=== PATIENT | male | born 1950 | race Caucasian/White ===

== ENCOUNTER 2017-01-11 22:30 | Emergency (ER) | payer MEDICARE, BC ==
[2017-01-11] MEDS ORDERED: ASPIRIN 81 MG TABLET, CHEWABLE PO ONE (22:37)
--- NOTE | 2017-01-11 23:09 | RADIOLOGY REPORT (SQ) ---
EXAM DESCRIPTION: CHEST SINGLE VIEW COMPLETED DATE/TIME: 01/11/2017 11:01 pm REASON FOR STUDY: chest pain COMPARISON: 11/15/2015. EXAM PARAMETERS: NUMBER OF VIEWS: One view. TECHNIQUE: Single frontal radiographic view of the chest acquired. RADIATION DOSE: NA LIMITATIONS: None. FINDINGS: LUNGS AND PLEURA: No opacities, masses or pneumothorax. No pleural effusion. MEDIASTINUM AND HILAR STRUCTURES: No masses. Contour normal. HEART AND VASCULAR STRUCTURES: Heart normal in size. Normal vasculature. BONES: No acute findings. HARDWARE: Sternotomy wires and coronary bypass markers. OTHER: No other significant finding. IMPRESSION: NO ACUTE RADIOGRAPHIC FINDING IN THE CHEST. TECHNICAL DOCUMENTATION: JOB ID: [id number]
[2017-01-11 23:14] LABS: ABSOLUTE EOSINOPHILS # (AUTO) 0.1 10^3/uL (0.0-0.6); ABSOLUTE LYMPHOCYTES (AUTO) 1.1 10^3/uL (0.5-4.7); ABSOLUTE MONOCYTES (AUTO) 0.6 10^3/uL (0.1-1.4); ABSOLUTE NEUT (AUTO) 4.5 10^3/uL (1.7-8.2); BASOPHILS % (AUTO) 0.4 % (0-2); EOSINOPHILS % (AUTO) 2.3 % (0-6); HEMATOCRIT 38.3 % (37.9-51.0); HEMOGLOBIN 12.7 g/dL (13.5-17.0); HGB HCT DIFFERENCE -0.2; LYMPHOCYTES % (AUTO) 16.6 % (13-45); MEAN CORPUSCULAR HEMOGLOBIN 30.6 pg (27.0-33.4); MEAN CORPUSCULAR HGB CONC 33.1 g/dL (32.0-36.0); MEAN CORPUSCULAR VOLUME 92 fl (80-97); MONOCYTES % (AUTO) 9.7 % (3-13); RED BLOOD COUNT 4.15 10^6/uL (4.35-5.55); RED CELL DISTRIBUTION WIDTH 13.4 % (11.5-14.0); WHITE BLOOD COUNT 6.4 10^3/uL (4.0-10.5)
[2017-01-11 23:28] LABS: ALANINE AMINOTRANSFERASE 39 U/L (21-72); ALBUMIN 4.3 g/dL (3.5-5.0); ALKALINE PHOSPHATASE 54 U/L (38-126); ANION GAP 14 (5-19); ASPARTATE AMINO TRANSFERASE 31 U/L (17-59); BILIRUBIN,DIRECT 0.2 mg/dL (0.0-0.4); BILIRUBIN,TOTAL 0.4 mg/dL (0.2-1.3); BLOOD UREA NITROGEN 19 mg/dL (7-20); CALCIUM 9.4 mg/dL (8.4-10.2); CARBON DIOXIDE 20 mmol/L (22-30); CHLORIDE 104 mmol/L (98-107); CREATINE KINASE 107 U/L (55-170); CREATININE RESULT 0.85 mg/dL (0.52-1.25); GLUCOSE 179 mg/dL (75-110); POTASSIUM 4.3 mmol/L (3.6-5.0); SODIUM 138.1 mmol/L (137-145); TOTAL PROTEIN 6.6 g/dL (6.3-8.2)
--- NOTE | 2017-01-11 23:30 | ER Document Report ---
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 He states that he came to be evaluated for this. Past medical history of GA with stenting 1, GA with triple bypass in 2013, type 2 diabetes, hypertension, hyperlipidemia. He follows with local vest busheler Dr. Edmondson, he had a stress test within the past month. TRAVEL OUTSIDE OF THE [place] IN LAST 30 DAYS: No - Related Data Allergies/Adverse Reactions: No Known Allergies Allergy (Verified 11/15/15 04:33) Past Medical History - General Information source: Patient - Social History Smoking Status: Former Smoker Frequency of alcohol use: None Drug Abuse: None Lives with: Family Family History: CAD, Hypertension, Other - GA Patient has suicidal ideation: No Patient has homicidal ideation: No - Past Medical History Cardiac Medical History: Reports: Hx Coronary Artery Disease, Hx Heart Attack - x2, Hx Hypercholesterolemia, Hx Hypertension Endocrine Medical History: Reports: Hx Diabetes Mellitus Type 2 Renal/ Medical History: Reports: Hx Kidney Stones. Denies: Hx Peritoneal Dialysis Past Surgical History: Reports: Hx Cardiac Catheterization - stent x1; triple bypass, Hx Coronary Artery Bypass Graft, Hx Coronary Stent - Immunizations Hx Diphtheria, Pertussis, Tetanus Vaccination: No Hx Pneumococcal Vaccination: 04/15/14 Review of Systems - Review of Systems Constitutional: No symptoms reported EENT: No symptoms reported Cardiovascular: See HPI Respiratory: No symptoms reported Gastrointestinal: No symptoms reported Genitourinary: No symptoms reported Male Genitourinary: No symptoms reported Musculoskeletal: No symptoms reported Skin: No symptoms reported Hematologic/Lymphatic: No symptoms reported Neurological/Psychological: No symptoms reported Physical Exam - Vital signs Vitals: Pulse Ox 97 01/11/17 22:37 Interpretation: Normal - General General appearance: Appears well In distress: None - HEENT Head: Normocephalic, Atraumatic Eyes: Normal Extraocular movements intact: Yes Eyelashes: Normal Pupils: PERRL Nasal: Other Mucous membranes: Normal Pharynx: Normal Neck: Normal - Respiratory Respiratory status: No respiratory distress Chest status: Tender - There is reproducible tenderness over both the right and left chest wall over the pectoralis muscles, no erythema, induration, or other abnormalities noted Breath sounds: Normal. No: Decreased air movement, Wheezing Chest palpation: Normal - Cardiovascular Rhythm: Regular. No: Tachycardia Heart sounds: Normal auscultation, S1 appreciated, S2 appreciated Murmur: No - Abdominal Inspection: Normal Distension: No distension Bowel sounds: Normal Tenderness: Nontender. No: Tender, Guarding Organomegaly: No organomegaly - Back Back: Normal, Nontender. No: Tender - Extremities General upper extremity: Normal inspection, Nontender, Normal color, Normal ROM , Normal temperature General lower extremity: Normal inspection, Nontender, Normal color, Normal ROM , Normal temperature, Normal weight bearing. No: Louis's sign - Neurological Neuro grossly intact: Yes Cognition: Normal Orientation: AAOx4 [place] Coma Scale Eye Opening: Spontaneous [place] Coma Scale Verbal: Oriented [place] Coma Scale Motor: Obeys Commands Vil[place] Coma Scale Total: 15 Speech: Normal Motor strength normal: LUE, RUE, LLE, RLE Sensory: Normal - Psychological Associated symptoms: Normal affect, Normal mood - Skin Skin Temperature: Warm Skin Moisture: Dry Skin Color: Normal Course - Re-evaluation Re-evalutation: EKG shows sinus rhythm, no T-wave inversions or ST segment changes in consecutive leads, no significant change compared to prior. Initial cardiac enzyme unremarkable, labs generally unremarkable other than slightly low bicarbonate. Does have mild chest wall tenderness on examination. Worse with movement. X-ray unremarkable. Cardiac enzymes cycled and is unremarkable. Patient began complaining of a headache, this resolved with Tylenol and Zofran. Discussed with patient's vest busheler, Dr. Edmondson, discussed results, history, symptoms. Stress test 6 weeks ago which was recommending intense medical therapy with low cardiac threshold for cath, however patient does have specific tenderness on palpation, negative workup tonight, and symptoms have been going on for over a week. He recommends that patient call his office this morning or on Sunday, patient states he has his cell phone already and that he prefers this. Discussed return precautions, patient states understanding and agreement. - Vital Signs Vital signs: Temp Pulse Resp BP Pulse Ox 97.9 F 12 148/81 H 94 01/12/17 05:26 01/12/17 05:01 01/12/17 05:01 01/12/17 05:01 - Laboratory Result Diagrams: 01/11/17 22:58 01/11/17 22:58 Laboratory results interpreted by me: 01/11/17 01/11/17 22:58 22:58 RBC 4.15 L Hgb 12.7 L Carbon Dioxide 20 L Glucose 179 H Discharge - Discharge Clinical Impression: Chest wall pain Chest pain Qualifiers: Chest pain type: unspecified Qualified Code(s): R07.9 - Chest pain, unspecified Condition: Stable Disposition: HOME, SELF-CARE Additional Instructions: Your workup today did not show any abnormalities. Because of your history and symptoms, please call Dr. Edmondson (cell phone) either today or Sunday for a close follow-up. Return to emergency department for any concerning or worsening symptoms.
[2017-01-11 23:38] LABS: CREATINE KINASE MB 1.89 ng/mL (<4.55)
[2017-01-11 23:39] LABS: TROPONIN I < 0.012 ng/mL
[2017-01-12] MEDS ORDERED: NORMAL SALINE 1000 ML 500 ML IV ONE (00:16)
[2017-01-12] MEDS ORDERED: MORPHINE SULFATE 10 MG/ML INJ IV ONE (02:50)
[2017-01-12] MEDS ORDERED: ACETAMINOPHEN 325 MG TABLET PO ONE (04:09)
[2017-01-12] MEDS ORDERED: ONDANSETRON HCL INJ/PF 4 MG/2 ML SDV IV ONE (04:09)
[2017-01-12 05:15] VITALS: BP 148/81
--- NOTE | 2017-01-12 08:36 | EKG REPORT ---
SEVERITY:- ABNORMAL ECG - SINUS TACHYCARDIA VENTRICULAR PREMATURE COMPLEX LEFT ANTERIOR FASCICULAR BLOCK : Confirmed by: Susana Rojas 12-Jan-2017 08:35:40
== END 2017-01-12 05:26 | disposition home or self-care (01) ==
LOC: ER 22:30
DX: R07.89 Other chest pain (principal); R11.0 Nausea; R42 Dizziness and giddiness; R51 Headache; E11.9 Type 2 diabetes mellitus without complications; I25.10 Atherosclerotic heart disease of native coronary artery without angina pectoris; I25.2 Old myocardial infarction; I10 Essential (primary) hypertension; Z87.891 Personal history of nicotine dependence; Z82.49 Family history of ischemic heart disease and other diseases of the circulatory system; Z98.61 Coronary angioplasty status; Z95.1 Presence of aortocoronary bypass graft
CPT/HCPCS: 93005; 99285; 96361; 96374; 36415; 82553; 82550; 85025; 80053; 84484; 71010; 93010; J2270; J7030

== ENCOUNTER 2017-07-08 10:19 | Emergency (ER) | payer MEDICARE, BC ==
[2017-07-08] MEDS ORDERED: ASPIRIN 81 MG TABLET, CHEWABLE PO ONE (10:20)
[2017-07-08 10:43] LABS: ABSOLUTE EOSINOPHILS # (AUTO) 0.3 10^3/uL (0.0-0.6); ABSOLUTE LYMPHOCYTES (AUTO) 1.4 10^3/uL (0.5-4.7); ABSOLUTE MONOCYTES (AUTO) 0.7 10^3/uL (0.1-1.4); ABSOLUTE NEUT (AUTO) 4.5 10^3/uL (1.7-8.2); BASOPHILS % (AUTO) 0.4 % (0-2); EOSINOPHILS % (AUTO) 3.8 % (0-6); HEMATOCRIT 40.4 % (37.9-51.0); HEMOGLOBIN 13.7 g/dL (13.5-17.0); HGB HCT DIFFERENCE 0.7; LYMPHOCYTES % (AUTO) 20.1 % (13-45); MEAN CORPUSCULAR HEMOGLOBIN 30.8 pg (27.0-33.4); MEAN CORPUSCULAR HGB CONC 33.9 g/dL (32.0-36.0); MEAN CORPUSCULAR VOLUME 91 fl (80-97); MONOCYTES % (AUTO) 9.6 % (3-13); RED BLOOD COUNT 4.45 10^6/uL (4.35-5.55); RED CELL DISTRIBUTION WIDTH 12.6 % (11.5-14.0); SEGMENTED NEUTROPHILS % (AUTO) 66.1 % (42-78); WHITE BLOOD COUNT 6.8 10^3/uL (4.0-10.5)
[2017-07-08 10:58] LABS: ALANINE AMINOTRANSFERASE 42 U/L (21-72); ALBUMIN 4.5 g/dL (3.5-5.0); ALKALINE PHOSPHATASE 54 U/L (38-126); ANION GAP 14 (5-19); ASPARTATE AMINO TRANSFERASE 36 U/L (17-59); BILIRUBIN,DIRECT 0.2 mg/dL (0.0-0.4); BILIRUBIN,TOTAL 0.4 mg/dL (0.2-1.3); BLOOD UREA NITROGEN 23 mg/dL (7-20); CALCIUM 11.1 mg/dL (8.4-10.2); CARBON DIOXIDE 25 mmol/L (22-30); CHLORIDE 102 mmol/L (98-107); CREATINE KINASE 50 U/L (55-170); CREATININE RESULT 1.07 mg/dL (0.52-1.25); GLUCOSE 120 mg/dL (75-110); POTASSIUM 4.8 mmol/L (3.6-5.0); SODIUM 140.9 mmol/L (137-145); TOTAL PROTEIN 6.8 g/dL (6.3-8.2)
[2017-07-08 11:10] LABS: CREATINE KINASE MB 1.06 ng/mL (<4.55)
[2017-07-08 11:11] LABS: TROPONIN I < 0.012 ng/mL
--- NOTE | 2017-07-08 11:41 | RADIOLOGY REPORT (SQ) ---
EXAM DESCRIPTION: CHEST SINGLE VIEW COMPLETED DATE/TIME: 07/08/2017 11:33 am REASON FOR STUDY: cp COMPARISON: 01/11/2017 NUMBER OF VIEWS: One view. TECHNIQUE: Single frontal radiographic view of the chest acquired. LIMITATIONS: None. FINDINGS: LUNGS AND PLEURA: No opacities, masses or pneumothorax. No pleural effusion. MEDIASTINUM AND HILAR STRUCTURES: No masses. Contour normal. HEART AND VASCULAR STRUCTURES: Heart normal in size. Normal vasculature. Prior CABG. BONES: No acute findings. HARDWARE: CABG hardware. OTHER: No other significant finding. IMPRESSION: NO SIGNIFICANT RADIOGRAPHIC FINDING IN THE CHEST. PRIOR CABG. TECHNICAL DOCUMENTATION: JOB ID: [id number] [facility] [employer] [facility]- All Rights Reserved
--- NOTE | 2017-07-08 12:24 | ER Document Report ---
ED Cardiac - General Chief Complaint: Chest Pain Stated Complaint: CHEST PAIN Time Seen by Provider: 07/08/17 12:19 Mode of Arrival: Ambulatory Information source: Patient Notes: 66 yo male who lives alone, hx 2 VT (angioplasty age 41, CABG 2013, 1 stent age 47) DM2, hypertension, hereditary cardiac problems, hyperlipidemia, c/o intermittent Delgado chest pain (left greater than right) squeezing for a week, constant since 0130, couldn't sleep, pressure lik too. Persisted today, 3 NTG did not help. Superficial Aching/Tightness left chest persists at this time "over the pectoral muscles), similar sx but less amount on the right. Recent dx and tx prostatis (antibiotics), Dr Zaldivar told him to come in to be seen. No recent injury or physical labor to cause muscle pain. TRAVEL OUTSIDE OF THE [place] IN LAST 30 DAYS: No - Related Data Allergies/Adverse Reactions: No Known Allergies Allergy (Verified 07/08/17 10:35) Past Medical History - General Information source: Patient - Social History Smoking Status: Former Smoker Chew tobacco use (# tins/day): No Frequency of alcohol use: None Drug Abuse: None Family History: CAD, Hypertension, Other - [place] Patient has suicidal ideation: No Patient has homicidal ideation: No - Past Medical History Cardiac Medical History: Reports: Hx Coronary Artery Disease, Hx Heart Attack - x2, Hx Hypercholesterolemia, Hx Hypertension Endocrine Medical History: Reports: Hx Diabetes Mellitus Type 2 Renal/ Medical History: Reports: Hx Kidney Stones. Denies: Hx Peritoneal Dialysis Past Surgical History: Reports: Hx Cardiac Catheterization - stent x1; triple bypass, Hx Coronary Artery Bypass Graft, Hx Coronary Stent - Immunizations Hx Diphtheria, Pertussis, Tetanus Vaccination: No Hx Pneumococcal Vaccination: 04/15/14 Review of Systems - Review of Systems Constitutional: No symptoms reported EENT: No symptoms reported Cardiovascular: See HPI Respiratory: No symptoms reported Gastrointestinal: No symptoms reported Genitourinary: No symptoms reported Male Genitourinary: No symptoms reported Musculoskeletal: No symptoms reported Skin: No symptoms reported Hematologic/Lymphatic: No symptoms reported Neurological/Psychological: No symptoms reported Physical Exam - Vital signs Vitals: Pulse Ox 98 07/08/17 10:30 Interpretation: Normal - General General appearance: Appears well, Alert - HEENT Head: Normocephalic, Atraumatic Eyes: Normal Conjunctiva: Normal Pupils: PERRL Mucous membranes: Normal Pharynx: Normal Neck: Supple. No: Lymphadenopathy - Respiratory Respiratory status: No respiratory distress Chest status: Nontender. No: Tender Breath sounds: Normal Chest palpation: Normal - Cardiovascular Rhythm: Regular Heart sounds: Normal auscultation Murmur: No - Abdominal Inspection: Normal Distension: No distension Bowel sounds: Normal Tenderness: Nontender. No: Tender Organomegaly: No organomegaly - Back Back: Normal, Nontender. No: CVA tenderness - Extremities General upper extremity: Normal inspection, Nontender, Normal color, Normal ROM , Normal temperature General lower extremity: Normal inspection, Nontender, Normal color, Normal ROM , Normal temperature, Normal weight bearing. No: Louis's sign - Neurological Neuro grossly intact: Yes Cognition: Normal Orientation: AAOx4 [place] Coma Scale Eye Opening: Spontaneous [place] Coma Scale Verbal: Oriented [place] Coma Scale Motor: Obeys Commands Vil[place] Coma Scale Total: 15 Speech: Normal Motor strength normal: LUE, RUE, LLE, RLE Sensory: Normal - Psychological Associated symptoms: Normal affect, Normal mood - Skin Skin Temperature: Warm Skin Moisture: Dry Skin Color: Normal Skin irregularity: negative: Rash Course - Re-evaluation Re-evalutation: 07/08/17 12:[address] carrasco, he said to consult dr. zaldivar. 07/08/17 12:[address] Zaldivar who recommended giving a Percocet and to get the second troponin and call him back. 07/08/17 16:12 Second troponin is negative and Dr. Decker called and wants the patient discharged home to take Tylenol, dr zaldivar states this is not cardiac pain. He saw the pt in ER 1. Pain went to 2.5 after the percocet per dr zaldivar orders. 07/08/17 16:14 - Vital Signs Vital signs: Temp Pulse Resp BP Pulse Ox 98.2 F 73 20 124/71 96 07/08/17 16:42 07/08/17 16:42 07/08/17 16:42 07/08/17 16:42 07/08/17 16:42 - Laboratory Result Diagrams: 07/08/17 10:29 07/08/17 10:29 Laboratory results interpreted by me: 07/08/17 10:29 BUN 23 H Glucose 120 H Calcium 11.1 H Creatine Kinase 50 L Discharge - Discharge Clinical Impression: Chest pain Qualifiers: Chest pain type: unspecified Qualified Code(s): R07.9 - Chest pain, unspecified Condition: Good Disposition: HOME, SELF-CARE Instructions: Acetaminophen, Chest Pain of Unclear Cause ([facility]) Additional Instructions: see dr zaldivar for follow up return to ER any worsening in symptoms or any new symptoms Referrals: LISSETTE DECKER MD [ACTIVE STAFF] - Follow up as needed ()
[2017-07-08] MEDS ORDERED: OXYCODONE-ACETAMINOPHEN 5-325 MG TABLET PO ONE (12:49)
[2017-07-08] MEDS ORDERED: MAG HYDROX/AL HYDROX/SIMETH SUSP 30 ML UDCUP PO ONE (14:45)
[2017-07-08 16:45] VITALS: BP 124/71
--- NOTE | 2017-07-08 20:38 | CONSULTATION REPORT E ---
Consultation Report NAME: DONNA FELICIANO : 1950 AGE: 66Y DATE: 07/08/2017 TO: LISSETTE DECKER M.D. FROM: Mayco FERNANDO Requesting Physician REQUESTING PHYSICIAN: Patient seen in the Emergency Room at the request of Nurse Practitioner, Ms. Diaz Jemma. REASON FOR CONSULTATION: Chest tightness. HISTORY: The patient is a 66-year-old male with known history of coronary artery disease, history of coronary artery bypass graft surgery, past history of AL, history of stents prior to bypass graft surgery, hypertension, and diabetes mellitus type 2 non-insulin dependent state. Since the last 1 week, he has been having some chest tightness in the left front of the chest and also on the right side. It comes and goes. It stays for about half an hour or so. It is not associated with diaphoresis, palpitations or shortness of breath. He states that it is not brought on or increased by exertion. He states that he took 3 nitroglycerin 5 minutes apart with no relief. He also states that he felt nauseous and felt like he had to throw up before he came into the Emergency Room. He called me with this and since the patient has had significant coronary artery disease, I asked him to come to the Emergency Room. At present, the patient is having mild chest tightness. There is no chest wall tenderness. Moving his torso or clenching his pectoral muscles does not reproduce or increase the pain. He denies any shortness of breath, PND, orthopnea, leg edema, dizziness, near syncope or syncope. There are no TIA or CVA symptoms. There is no pedal edema. PAST MEDICAL HISTORY: Positive for history of hypertension and hyperlipidemia. He also has history of depression which is well controlled on medication. He has a history of enlarged prostate, symptoms controlled with medication. He also has a history of diabetes mellitus type 2, non-insulin dependent. He states that when he was age 47, he had an AL and subsequently had a stent in unknown coronary artery vessel. Subsequently, he developed an ST elevation AL in 2012 and cardiac catheterization showed a left main equivalent disease with a proximal LAD significant lesion and also a circumflex lesion. He underwent coronary artery bypass graft surgery with a PECK to the LAD and a sequential radial graft to the obtuse marginal 1 and obtuse marginal 2 branch of the circumflex. He has had a recent stress test which was negative for ischemia or AL. His echo also showed normal LV function. There is no history of congestive heart failure. He has had atypical chest pain, which sounds noncardiac, since a few months. He has a history of hypertension which is well controlled and he has a history of diabetes mellitus type 2 non-insulin dependent. He also has a history of hyperlipidemia. There is no history of TIA or CVA. There is no history of asthma, COPD or sleep apnea. He has no history of GERD or peptic ulcer disease. He has symptoms of enlarged prostate controlled with medication. He has no history of sleep apnea. NO history of headaches, migraines or seizures. No history of TIA, CVA. He has a history of depression, well controlled with medication. There is no history of chronic kidney disease. ALLERGIES: He has no known allergies. FAMILY HISTORY: His father did have coronary artery disease and an AL. MEDICATIONS: 1. Aspirin 81 mg chewable 1 p.o. daily. 2. Atorvastatin 80 mg p.o. daily. 3. Flexeril 10 mg p.o. t.i.d. p.r.n. 4. Linzess 1 tablet p.o. daily. 5. Metformin 1000 mg tablet p.o. b.i.d. 6. Flomax 0.4 mg p.o. daily. 7. Metoprolol tartrate 25 mg p.o. b.i.d. 8. Effexor XR 37.5 mg p.o. daily. REVIEW OF SYSTEMS: CONSTITUTIONAL: Denies any fevers, chills or rigors. There are no symptoms of weakness or fatigue. HEAD: No history of headaches or head injury. No dizziness. EYES: No history of amblyopia or diplopia. No history of amaurosis fugax. EARS: No history of hearing loss. No history of tinnitus. No history of recurrent ear infection. NOSE: No history of hay fever. No history of nosebleeds. No history of nasal polyps. MOUTH: No altered taste sensation. No ulcers in the tongue. No bleeding from the gums. THROAT: No odynophagia or dysphagia. No history of recurrent sore throats. SKIN: No history of pruritus. No history of yellowish discoloration of the skin. history of psoriasis or skin cancer. NECK: Denies any neck pain. No history of goiter. LUNGS: No history of asthma or COPD. No history of wheezing. No history of recent symptoms suggestive rule out URI or LRI. No cough or sputum production. No wheezing. No history of sleep apnea. No history of pulmonary embolism. No history of hemoptysis. No history of pleuritic chest pain. CARDIAC: History of noncardiac chest pain, as mentioned earlier. History of hypertension present. History of coronary artery disease. Old myocardial infarction. History of coronary artery bypass graft surgery. No history of congestive heart failure. No history of cardiac arrhythmia. No history of PND, orthopnea or leg edema. No history of palpitations, syncope or near syncope. No dizziness. RENAL: No history of chronic kidney disease. No history of symptoms of UTI. No history of hematuria, pyuria or dysuria. GASTROINTESTINAL: No history of GI bleed. No history of peptic ulcer disease. The patient has history of constipation and takes Linzess for this. No history of fatty food intolerance. No history of jaundice. No history of altered bowel movements. Did have some nausea with symptoms mentioned earlier. He did feel like throwing up but did not. RENAL: No history of chronic kidney disease. No symptoms of UTI. No history of hematuria, pyuria or dysuria. Symptoms of enlarged prostate, controlled with medication. MUSCULOSKELETAL: History of arthritis and chronic back pain. He takes Flexeril off and on. No history of collagen-vascular disease. ENDOCRINE: History of diabetes mellitus type 2, non-insulin dependent. No history of thyroid disease. No history of polydipsia or polyuria. No history of heat or cold intolerance. CENTRAL NERVOUS SYSTEM: No history of TIA or CVA. No history of seizures, headaches or migraines. No history of gait imbalance. PSYCHIATRIC: History of depression, well controlled with medication. No suicidal ideation. No history of homicidal ideation. VASCULAR: No history of calf or buttock claudication. No history of DVT. HEMATOLOGICAL: No history of bleeding diathesis. No history of clotting disorders. SOCIAL HISTORY: The patient does not smoke. There is no history of ETOH abuse. ADVANCED DIRECTIVE: The patient is FULL CODE. He states that his friend who is a nurse is his surrogate healthcare decision maker. PHYSICAL EXAMINATION: GENERAL: The patient is well built and well nourished, at present in no acute distress. VITAL SIGNS: He is afebrile with a temperature of 98 degrees Fahrenheit. His pulse is 58 beats per minute. Blood pressure is 129/74. Respirations are 14 per minute. O2 sats are 96% on room air. HEENT: Head is atraumatic, normocephalic. Eyes: Pupils are equal, round, regular, reactive to light and accommodation. Extraocular movements are normal. There is no conjunctival pallor. There is no scleral icterus. Ears: Tympanic membranes are intact. External auditory canals are clear. Nose: There is no deviated nasal septum. There is no inflammation of the nasal mucous membranes. Mouth: Mucous membranes of the mouth are moist. Tongue is moist. There are no ulcers. There is no bleeding from the gums. Throat: There is no redness of the oropharynx. There are no exudates in the throat. SKIN: There are no skin rashes. There is no petechia or ecchymosis. There are no skin lesions. NECK: Supple. There is no JVD. There is no lymphadenopathy. There is no goiter. Carotids are equal. There is no bruit. Trachea central. LUNGS: Clear to auscultation and percussion. There is no chest wall tenderness. HEART: S1 and S2 is heard. There is no S3 gallop. There is no S4 gallop. There is a systolic murmur in the left sternal border on the apex without radiation. There is no rub. ABDOMEN: Soft, nontender. There is no hepatosplenomegaly. Bowel sounds are well heard. There are no tender areas or masses. EXTREMITIES: Femorals are well felt. Leg pulses are well felt. There is no pedal edema. There is no DVT or cellulitis. There are no femoral bruits. There is no cyanosis or clubbing. There is no calf tenderness. Capillary refill is normal. CENTRAL NERVOUS SYSTEM: The patient is conscious, awake, alert, oriented x3 with no focal deficits. PSYCHIATRIC: The patient's judgment and insight are intact. His affect is normal. DIAGNOSTICS: The patient's EKG done shows sinus rhythm, left axis deviation. No acute changes. The patient's chest x-ray is negative with no acute radiographic findings. The patient's white count is 6800; hemoglobin 13.7; hematocrit 40.4; and platelet count is 179,000. His CPK MB is negative x1. His CPK is about 50. His troponin I is negative x2, taken about 6 hours apart. His total protein is 6.8, albumin is 4.5. The patient's sodium is 140.9, potassium 4.8, chloride 102, CO2 is 25. The patient's BUN is 23, creatinine is 1.07. GFR is greater than 60 and glucose is 120, calcium 7.1. His liver function tests were normal. IMPRESSION: 1. Chest pain, most likely noncardiac. Note: Here the patient had relief with Darvocet and Maalox. 2. Coronary artery disease, history of old AL, history of stent in an unknown vessel, and history of coronary artery bypass graft surgery x3 vessels. No definite anginal symptoms. No EKG changes. Negative troponin I x2. 3. Hypertension, well controlled. 4. Diabetes mellitus type 2, non-insulin dependent. Blood sugars fairly stable. Continue metformin. 5. Hyperlipidemia. Continue statin. 6. Symptoms of enlarged prostate, controlled with medication. Continue the same. 7. History of depression, well controlled with medication. ADDENDUM: PAST SURGICAL HISTORY: Positive for: 1. Cardiac catheterization. 2. Stent placement. 3. Coronary artery bypass graft. 4. History of stones removed from his right kidney endoscopically. RECOMMENDATIONS: 1. The patient is reassured that this pain is noncardiac. 2. We will continue his current medications including aspirin, beta carmen, sublingual nitroglycerin p.r.n. 3. Continue his metformin and statin. 4. Continue his medication for enlarged prostate. 5. Continue Linzess for his constipation. The patient was seen in the Emergency Room at 11:00. Time spent on the patient was 45 minutes including review of the patient's old chart and present chart and discussing the EKG, chest x-ray, and lab findings with the patient. Patient reassured that this is noncardiac. The patient has my cell phone number. He will call me if he has any further problems. More than 50% of the time or 45 minutes spent on direct patient care and also case discussed with the ER nurse practitioner and also the patient. His medications have been reviewed and I have asked him to continue his current medication including sublingual nitroglycerin p.r.n., chewable aspirin, metoprolol, and his other current medication. The patient has my cell phone number. We will arrange for the patient to see me in the office. Medical decision making is moderate to high complexity. We will follow with you. DICTATING PHYSICIAN: LISSETTE DECKER M.D. [id number] PHY#: [id number] ID: [id number] JOB#: [id number] ACCT: [id number] cc:LISSETTE DECKER M.D. >
--- NOTE | 2017-07-08 20:47 | EKG REPORT ---
SEVERITY:- BORDERLINE ECG - SINUS RHYTHM BORDERLINE IVCD WITH LAD : Confirmed by: Everton Allan MD 08-Jul-2017 20:46:47
== END 2017-07-08 16:45 | disposition home or self-care (01) ==
LOC: ER 10:19
DX: R07.9 Chest pain, unspecified (principal); E11.9 Type 2 diabetes mellitus without complications; I10 Essential (primary) hypertension; E78.5 Hyperlipidemia, unspecified; I25.10 Atherosclerotic heart disease of native coronary artery without angina pectoris; I25.2 Old myocardial infarction; Z95.1 Presence of aortocoronary bypass graft; Z87.891 Personal history of nicotine dependence; Z87.442 Personal history of urinary calculi
CPT/HCPCS: 93005; 99285; 36415; 82553; 82550; 85025; 80053; 84484; 71010; 93010; A9270 ×2

== ENCOUNTER 2017-07-31 14:50 | Emergency (ER) | payer MEDICARE, BC ==
--- NOTE | 2017-07-31 16:28 | ER Document Report ---
ED Medical Screen (RME) - General Chief Complaint: Groin Pain Stated Complaint: GROIN PAIN,ABDOMINAL CRAMPING Time Seen by Provider: 07/31/17 16:26 Mode of Arrival: Ambulatory Information source: Patient Notes: 66 yo male with bilateral groin pain and abdominal pain since , constant everyday. Marbella leone (urologist) ordered the CT scan done at [facility]. Has follow up appt sunday with dr. leone. Wants to be evaluated here at [facility]. Having sporadic stools, no vomiting, having some weight loss. No appetite. NO fever. Occasional nausea. TRAVEL OUTSIDE OF THE [place] IN LAST 30 DAYS: No - Related Data Allergies/Adverse Reactions: No Known Allergies Allergy (Verified 07/31/17 14:53) Past Medical History - Past Medical History Cardiac Medical History: Reports: Hx Coronary Artery Disease, Hx Heart Attack - x2, Hx Hypercholesterolemia, Hx Hypertension Endocrine Medical History: Reports: Hx Diabetes Mellitus Type 2 Renal/ Medical History: Reports: Hx Kidney Stones. Denies: Hx Peritoneal Dialysis Past Surgical History: Reports: Hx Cardiac Catheterization - stent x1; triple bypass, Hx Coronary Artery Bypass Graft, Hx Coronary Stent - Immunizations Hx Diphtheria, Pertussis, Tetanus Vaccination: No Physical Exam - Vital signs Vitals: Temp Pulse Resp BP Pulse Ox 97.6 F 73 18 112/63 94 07/31/17 15:00 07/31/17 15:00 07/31/17 15:00 07/31/17 15:00 07/31/17 15:00 Course - Vital Signs Vital signs: Temp Pulse Resp BP Pulse Ox 97.6 F 73 18 112/63 94 07/31/17 15:00 07/31/17 15:00 07/31/17 15:00 07/31/17 15:00 07/31/17 15:00
--- NOTE | 2017-07-31 17:12 | RADIOLOGY REPORT (SQ) ---
EXAM DESCRIPTION: ACUTE ABDOMEN SERIES COMPLETED DATE/TIME: 07/31/2017 4:49 pm REASON FOR STUDY: crampy abdominal pain COMPARISON: CT abdomen pelvis 06/23/2007, 10/08/2011 Chest films 07/08/2017 NUMBER OF VIEWS: Three views. TECHNIQUE: Frontal chest, supine abdomen and upright abdomen radiographic images acquired. LIMITATIONS: None. FINDINGS: CHEST: Lungs clear of infiltrates. Cardiac silhouette size normal. No hilar enlargement. Old sternotomy for CABG. Bones osteopenic without acute findings. FREE AIR: None. No abnormal gas collections. BOWEL GAS PATTERN: Nonobstructive pattern. No dilated loops or air fluid levels. Large amount of sto ol throughout the colon. CALCIFICATIONS: Pelvis phlebolith versus distal left ureteral calculus at the ureterovesical junction . HARDWARE: None in the abdomen. SOFT TISSUES: No gross mass or suggestion of organomegaly. BONES: No acute fracture. No worrisome bone lesions. OTHER: No other significant finding. IMPRESSION: 6 mm calcification in the left pelvis, could represent a distal left ureteral stone rath er than a pelvic phleboliths. Moderate constipation. No acute cardiopulmonary changes TECHNICAL DOCUMENTATION: JOB ID: [id number] [employer]- All Rights Reserved
[2017-07-31 17:36] LABS: ABSOLUTE EOSINOPHILS # (AUTO) 0.1 10^3/uL (0.0-0.6); ABSOLUTE LYMPHOCYTES (AUTO) 1.1 10^3/uL (0.5-4.7); ABSOLUTE MONOCYTES (AUTO) 0.5 10^3/uL (0.1-1.4); ABSOLUTE NEUT (AUTO) 6.9 10^3/uL (1.7-8.2); BASOPHILS % (AUTO) 0.5 % (0-2); EOSINOPHILS % (AUTO) 0.8 % (0-6); HEMATOCRIT 44.9 % (37.9-51.0); MEAN CORPUSCULAR HEMOGLOBIN 31.1 pg (27.0-33.4); MEAN CORPUSCULAR HGB CONC 33.5 g/dL (32.0-36.0); MEAN CORPUSCULAR VOLUME 93 fl (80-97); MONOCYTES % (AUTO) 5.9 % (3-13); PLATELET COUNT 239 10^3/uL (150-450); RED BLOOD COUNT 4.83 10^6/uL (4.35-5.55); RED CELL DISTRIBUTION WIDTH 13.2 % (11.5-14.0); SEGMENTED NEUTROPHILS % (AUTO) 79.8 % (42-78); TOTAL CELLS COUNTED % (AUTO) 100 %; WHITE BLOOD COUNT 8.7 10^3/uL (4.0-10.5)
[2017-07-31 17:46] LABS: APPEARANCE,URINE SLIGHTLY-CLOUDY; BILIRUBIN,URINE NEGATIVE (NEGATIVE); CALCIUM OXALATE CRYSTALS,URINE MANY /HPF; COLOR,URINE YELLOW; GLUCOSE, URINE 50 mg/dL (NEGATIVE); KETONES,URINE NEGATIVE (NEGATIVE); LEUKOCYTE ESTERASE,URINE NEGATIVE (NEGATIVE); NITRITE,URINE NEGATIVE (NEGATIVE); PROTEIN,URINE NEGATIVE (NEGATIVE); URINE SPECIFIC GRAVITY 1.025
[2017-07-31 17:55] LABS: ALANINE AMINOTRANSFERASE 52 U/L (21-72); ALBUMIN 5.3 g/dL (3.5-5.0); ALKALINE PHOSPHATASE 52 U/L (38-126); ANION GAP 15 (5-19); ASPARTATE AMINO TRANSFERASE 35 U/L (17-59); BILIRUBIN,DIRECT 0.2 mg/dL (0.0-0.4); BILIRUBIN,TOTAL 0.4 mg/dL (0.2-1.3); BLOOD UREA NITROGEN 18 mg/dL (7-20); CALCIUM 10.9 mg/dL (8.4-10.2); CARBON DIOXIDE 27 mmol/L (22-30); CHLORIDE 101 mmol/L (98-107); GLUCOSE 102 mg/dL (75-110); LIPASE 493.4 U/L (23-300); MAGNESIUM 1.9 mg/dL (1.6-2.3); POTASSIUM 5.1 mmol/L (3.6-5.0); SODIUM 142.9 mmol/L (137-145); TOTAL PROTEIN 7.6 g/dL (6.3-8.2)
[2017-07-31] MEDS ORDERED: OXYCODONE-ACETAMINOPHEN 5-325 MG TABLET PO ONE (21:29)
--- NOTE | 2017-07-31 21:36 | ER Document Report ---
ED General - General Chief Complaint: Groin Pain Stated Complaint: GROIN PAIN,ABDOMINAL CRAMPING Time Seen by Provider: 07/31/17 16:26 Mode of Arrival: Ambulatory TRAVEL OUTSIDE OF THE [place] IN LAST 30 DAYS: No - HPI Patient complains to provider of: Abdominal pain Onset: Other - 2 months Onset/Duration: Constant Quality of pain: Achy Severity: Moderate Associated symptoms: None Exacerbated by: Denies Relieved by: Denies Similar symptoms previously: No Recently seen / treated by doctor: Yes - Dr. Church - Related Data Allergies/Adverse Reactions: No Known Allergies Allergy (Verified 07/31/17 14:53) Past Medical History - General Information source: Patient - Social History Smoking Status: Never Smoker Chew tobacco use (# tins/day): No Frequency of alcohol use: None Drug Abuse: None Lives with: Alone Family History: CAD, Hypertension, Other - [place] Patient has suicidal ideation: No Patient has homicidal ideation: No - Past Medical History Cardiac Medical History: Reports: Hx Coronary Artery Disease, Hx Heart Attack - x2, Hx Hypercholesterolemia, Hx Hypertension Pulmonary Medical History: Reports: None Neurological Medical History: Reports: None Endocrine Medical History: Reports: Hx Diabetes Mellitus Type 2 Renal/ Medical History: Reports: Hx Kidney Stones. Denies: Hx Peritoneal Dialysis Malignancy Medical History: Reports None GI Medical History: Reports: None, Other - Colonoscopy Musculoskeltal Medical History: Reports None Skin Medical History: Reports None Psychiatric Medical History: Reports: None Traumatic Medical History: Reports: None Past Surgical History: Reports: Hx Cardiac Catheterization - stent x1; triple bypass, Hx Coronary Artery Bypass Graft, Hx Coronary Stent - Immunizations Hx Diphtheria, Pertussis, Tetanus Vaccination: No Hx Pneumococcal Vaccination: 04/15/14 Review of Systems - Review of Systems Constitutional: No symptoms reported EENT: No symptoms reported Cardiovascular: No symptoms reported Respiratory: No symptoms reported Gastrointestinal: Abdominal pain Genitourinary: No symptoms reported Male Genitourinary: No symptoms reported Musculoskeletal: No symptoms reported Skin: No symptoms reported Hematologic/Lymphatic: No symptoms reported Neurological/Psychological: No symptoms reported Physical Exam - Vital signs Vitals: Temp Pulse Resp BP Pulse Ox 97.6 F 73 18 112/63 94 07/31/17 15:00 07/31/17 15:00 07/31/17 15:00 07/31/17 15:00 07/31/17 15:00 Interpretation: Normal - Notes Notes: PHYSICAL EXAMINATION: GENERAL: Well-appearing, well-nourished and in no acute distress. HEAD: Atraumatic, normocephalic. EYES: Pupils equal round and reactive to light, extraocular movements intact, sclera anicteric, conjunctiva are normal. ENT: Nares patent, oropharynx clear without exudates. Moist mucous membranes. NECK: Normal range of motion, supple without lymphadenopathy LUNGS: Breath sounds clear to auscultation bilaterally and equal. No wheezes rales or rhonchi. HEART: Regular rate and rhythm ABDOMEN: Soft, centralized mild tenderness, nondistended abdomen. No guarding, no rebound. No masses appreciated. Musculoskeletal: Normal range of motion, no pitting or edema. No cyanosis. NEUROLOGICAL: Cranial nerves grossly intact. Normal speech, normal gait. Normal sensory, motor exams PSYCH: Normal mood, normal affect. SKIN: Warm, Dry, normal turgor, no rashes or lesions noted. : No inguinal hernias appreciated Course - Re-evaluation Re-evalutation: 07/31/17 21:38 I did talk to the patient after reviewing his CAT scan as well as her findings. It does seem that his lipase is mildly increased which fits with a presentation of mild pancreatitis. Patient states that he does not drink. His LFTs and bilirubin are within normal limits. I told the patient I will discharge him home with pain medication. He is to call his primary medical doctor in the morning to be seen this week for further evaluation. She is to return to the emergency department if he has high fevers increased pain vomiting or any other concerns. 07/31/17 21:47 Patient's psychology physician was also in the room when I went over the findings as well as the discharge plan. Patient was agreeable to call his primary medical doctor in the morning for further evaluation - Vital Signs Vital signs: Temp Pulse Resp BP Pulse Ox 97.6 F 73 18 112/63 94 07/31/17 15:00 07/31/17 15:00 07/31/17 15:00 07/31/17 15:00 07/31/17 15:00 - Laboratory Result Diagrams: 07/31/17 17:10 07/31/17 17:10 Laboratory results interpreted by me: 07/31/17 07/31/17 07/31/17 17:10 17:10 17:10 Seg Neutrophils % 79.8 H Potassium 5.1 H Calcium 10.9 H Albumin 5.3 H Lipase 493.4 H Urine Glucose (UA) 50 H Urine Urobilinogen 2.0 H Urine Ascorbic Acid 40 H - Diagnostic Test Radiology reviewed: Image reviewed, Reports reviewed Radiology results interpreted by me: 07/31/17 21:36 Obstruction series negative for any acute findings with the exception of a 6 mm calcification in the pelvis. Patient had an outpatient CT of abdomen and pelvis without contrast on 07/25/2017. Demonstrate gallstones, splenic calcification on the lateral margin with no change since 12/15/11, vascular calcifications, prostatic calcifications, degenerative changes of the lower lumbar spine. 07/31/17 21:37 Discharge - Discharge Clinical Impression: Pancreatitis Condition: Stable Disposition: HOME, SELF-CARE Instructions: Pancreatitis (OM) Additional Instructions: Return to the emergency department if you have vomiting, fevers, increased pain or any other concerns. Prescriptions: Hydrocodone/Acetaminophen [Larned 5-325 mg Tablet] 1 tab PO Q6 3 Days #12 tablet Referrals: Chelo CHU MD [Primary Care Provider] - Follow up tomorrow (Call for appointment in the next few days. Return to the emergency department if you have fevers, intractable vomiting or any other concerns.)
[2017-07-31 22:00] VITALS: BP 119/78
== END 2017-07-31 21:55 | disposition home or self-care (01) ==
LOC: ER 14:50
DX: K85.90 Acute pancreatitis without necrosis or infection, unspecified (principal); R10.30 Lower abdominal pain, unspecified
CPT/HCPCS: 99284; 36415; 87086; 83690; 83735; 85025; 80053; 81001; 74022; A9270

== ENCOUNTER 2017-08-31 05:36 | Day surgery (SDC) | payer MEDICARE, BC ==
[2017-08-30 10:01] LABS: HEMATOCRIT 38.3 % (37.9-51.0); HEMOGLOBIN 13.1 g/dL (13.5-17.0); MEAN CORPUSCULAR HEMOGLOBIN 31.2 pg (27.0-33.4); MEAN CORPUSCULAR HGB CONC 34.3 g/dL (32.0-36.0); MEAN CORPUSCULAR VOLUME 91 fl (80-97); PLATELET COUNT 192 10^3/uL (150-450); RED BLOOD COUNT 4.21 10^6/uL (4.35-5.55); RED CELL DISTRIBUTION WIDTH 13.2 % (11.5-14.0); WHITE BLOOD COUNT 7.1 10^3/uL (4.0-10.5)
[2017-08-30 10:29] LABS: ALANINE AMINOTRANSFERASE 43 U/L (21-72); ALBUMIN 4.5 g/dL (3.5-5.0); ALKALINE PHOSPHATASE 53 U/L (38-126); AMYLASE 71 U/L (30-110); ANION GAP 12 (5-19); ASPARTATE AMINO TRANSFERASE 31 U/L (17-59); BILIRUBIN,DIRECT 0.1 mg/dL (0.0-0.4); BILIRUBIN,TOTAL 0.2 mg/dL (0.2-1.3); BLOOD UREA NITROGEN 14 mg/dL (7-20); CALCIUM 9.8 mg/dL (8.4-10.2); CARBON DIOXIDE 26 mmol/L (22-30); CHLORIDE 106 mmol/L (98-107); GLUCOSE 144 mg/dL (75-110); POTASSIUM 4.5 mmol/L (3.6-5.0); SODIUM 144.2 mmol/L (137-145); TOTAL PROTEIN 6.3 g/dL (6.3-8.2)
[~2017-08-31 05:36] MED LIST: ACETAMINOPHEN 325 MG TABLET PO PRN; CEFAZOLIN 1 GM/D5W RTU 1 GM/50 ML RTUPB IV PRN; LACTATED RINGERS 1000 ML IV PRN; LIDOCAINE 0.5% INJ-PF (5 MG/ML) 50 ML SDV SUBCUT PRN
[2017-08-31] MEDS ORDERED: METOPROLOL SUCCINATE 25 MG TAB.SR.24H PO ONE (06:28)
[2017-08-31] MEDS ORDERED: BUPIVACAINE HCL 0.25 % INJ/PF (2.5 MG/1 ML) 30 ML VIAL ONE (06:36)
[2017-08-31] MEDS ORDERED: MIDAZOLAM 2 MG/2 ML INJ ONE (07:22)
[2017-08-31] MEDS ORDERED: ACETAMINOPHEN 100 ML IV ONE (07:23)
[2017-08-31] MEDS ORDERED: PROPOFOL INJ 200 MG/20 ML VIAL IV ONE (07:23)
[2017-08-31] MEDS ORDERED: FENTANYL CITRATE INJ/PF 250 MCG/5 ML AMPULE ONE (07:23)
[2017-08-31] MEDS ORDERED: FENTANYL CITRATE INJ/PF 100 MCG/2 ML AMPUL IV PRN ×3 (07:47)
[2017-08-31] MEDS ORDERED: MEPERIDINE HCL/PF INJ 25 MG/1 ML DISP.SYRIN IV PRN (07:47)
[2017-08-31] MEDS ORDERED: PROMETHAZINE HCL INJ 25 MG/1 ML VIAL IV PRN ×2 (07:47)
[2017-08-31] MEDS ORDERED: DIPHENHYDRAMINE HCL 50 MG/ML VIAL IV PRN (07:47)
[2017-08-31] MEDS ORDERED: OXYCODONE-ACETAMINOPHEN 5-325 MG TABLET PO PRN ×2 (07:47)
[2017-08-31] MEDS ORDERED: MORPHINE SULFATE 10 MG/ML INJ IV PRN (07:47)
--- NOTE | 2017-08-31 08:45 | PDOC DISCHARGE SUMMARY ---
Discharge Summary (SDC) - Discharge Final Diagnosis: Symptomatic cholelithiasis with cholecystitis Date of Surgery: 08/31/17 Discharge Date: 08/31/17 Condition: Good Treatment or Instructions: Resume preoperative medications, diet and be on a limited activity status; prescription for Toradol on chart; return to clinic in 1-2 weeks to follow-up with ANDREW Mancilla; May shower in 24 hours. Referrals: NORA WILCOX MD [Primary Care Provider] - Discharge Diet: As Tolerated Discharge Activity: Activity As Tolerated, No Lifting Over 10 Pounds Home Care Assistance: None Needed Report the Following to Your Physician Immediately: Shortness of Breath, Increase in Pain, Fever over 101 Degrees
--- NOTE | 2017-08-31 08:50 | Operative Report ---
Operative Report DATE OF SURGERY: 08/31/17 PREOPERATIVE DIAGNOSIS: Symptomatic cholecystitis with cholelithiasis POSTOPERATIVE DIAGNOSIS: Same OPERATION: 1. Laparoscopic cholecystectomy. 2. Intraoperative cholangiography. 3. Interpretation of intraoperative cholangiography SURGEON: WENDY PA ANESTHESIA: GA TISSUE REMOVED OR ALTERED: 1 gallbladder with contents COMPLICATIONS: None ESTIMATED BLOOD LOSS: Scant INTRAOPERATIVE FINDINGS: See below PROCEDURE: After obtaining informed consent, the patient was taken to the operating room. General Anesthesia was induced; the arms were extended, and the abdomen was exposed, and prepped and draped in a sterile fashion. Instrumentation was set up for laparoscopic cholecystectomy. Surgical plan and surgical timeout were conducted. A vertical incision was made above the umbilicus, and a verres needle was inserted uneventfully into the peritoneal cavity. Pneumoperitoneum was established. The verres needle was removed and a 5 mm trocar was inserted and a 5 mm flexible laparoscope was inserted. Visualization of the peritoneal cavity confirmed safe uneventful entry. Under direct visualization 3 additional 5 mm ports were established, one in the subxiphoid position and second in the subcostal position. Findings were significant for densities between the gallbladder, the gastroduodenal area, the proximal portion of the transverse colon. All adhesions were taken and using combination of sharp, hook, and gentle electrocautery dissection all under precise visualization. Graspers were placed on the gallbladder fundus and infundibulum and the gallbladder was reflected up over the liver bed. We now opened the triangle of Calot by dividing the peritoneal reflection on both the medial and lateral sides of the cystic duct infundibular junction. The critical view was obtained. Furthermore the cystic artery was in its typical location medial to the cystic duct. It was surrounded with a right angle clamp, closed twice proximally once distally divided with scissors Because of the patient's history of pancreatitis on the multiple small stones, we felt that an intraoperative cholangiogram would be appropriate to rule out any common bile duct stones. Cystic duct was photographed, clipped on the gallbladder side, then opened with the laparoscopic scissors. A percutaneous disposable cholangiogram catheter was threaded through the anterior abdominal wall through a separate stab wound, stylette removed, and catheter threaded 2 cm into the cystic duct stump. The catheter was secured with a clip, we proceeded to level the patient out, and perform intraoperative cholangiography. Full-strength Isovue contrast was injected into the cystic duct stump, eliminating the common hepatic duct common bile duct proximal biliary tree. There was no evidence of leak, and contrast flowed abruptly into the duodenum. Visualization of the distal common bile duct was somewhat challenged mostly due to duodenal peristalsis, but the lumen appeared to be free of any opacities. [place] the cholangiogram was complete. We returned to the table reinserted our laparoscopic instruments, remove the cholangiogram catheter, and discretely secured the cystic duct proximally with 2 clips. The cystic duct was divided in its entirety.The gallbladder was now removed from the undersurface of the liver using hook cautery dissection. Graspers were repositioned and the gallbladder was removed uneventfully from the abdominal cavity through the super umbilical port site incision. The specimen was examined, then passed off to pathology for permanent analysis. We returned to the peritoneal cavity check for bleeding, and evidence of bile leak, and there was none. We Confirmed satisfactory placement of clips on cystic duct and cystic artery were secured . At this point we felt the operation was complete. The subcutaneous tissue was then anesthetized with quarter percent Marcaine Sponge and needle counts are correct. All ports removed under direct visualization pneumoperitoneum evacuated, and the supraumbilical fascial defect was closed with 0 Vicryl, and 5 mm port wounds closed with 3-0 Vicryl suture, benzoin and Steri-Strips. The patient was extubated, and taken to the recovery room in stable condition.
[2017-08-31] MEDS ORDERED: FENTANYL CITRATE INJ/PF 100 MCG/2 ML AMPUL ONE (09:24)
--- NOTE | 2017-08-31 10:08 | RADIOLOGY REPORT (SQ) ---
EXAM DESCRIPTION: CHOLANGIOGRAM OPERATIVE COMPLETED DATE/TIME: 08/31/2017 8:34 am REASON FOR STUDY: IOC WITH LAP BRYCE K80.20 CALCULUS OF GALLBLADDER W/O CHOLECYSTITIS W/O OBSTRUC COMPARISON: None. FLUOROSCOPY TIME: 0.1 minute Multiple fluoroscopic images saved to PACS. TECHNIQUE: Cinegraphic images were obtained from an intraoperative cholangiogram. LIMITATIONS: None. FINDINGS: There is opacification of the bile ducts, cystic duct remnants and second portion of the d uodenum without evidence of fixed filling defect or significant extravasation. IMPRESSION: INTRAOPERATIVE CHOLANGIOGRAM. COMMENT: Quality ID [id number]: Final reports for procedures using fluoroscopy that document radiation exp osure indices, or exposure time and number of fluorographic images (if radiation exposure indices are not available) TECHNICAL DOCUMENTATION: JOB ID: [id number] [employer]- All Rights Reserved
[2017-08-31 11:42] VITALS: BP 152/85
== END 2017-08-31 11:43 | disposition home or self-care (01) ==
LOC: OROUT 05:36
PROVIDERS: ATTEND Surgery
PROC: BF031ZZ Plain Radiography of Gallbladder and Bile Ducts using Low Osmolar Contrast (ICD-10-PCS; 2017-08-31)
PROC: 0FT44ZZ Resection of Gallbladder, Percutaneous Endoscopic Approach (ICD-10-PCS; principal; 2017-08-31 07:30)
DX: K80.10 Calculus of gallbladder with chronic cholecystitis without obstruction (principal); I10 Essential (primary) hypertension; E11.9 Type 2 diabetes mellitus without complications; E78.00 Pure hypercholesterolemia, unspecified; H40.9 Unspecified glaucoma; K58.9 Irritable bowel syndrome, unspecified; Z79.82 Long term (current) use of aspirin; Z79.899 Other long term (current) drug therapy; Z86.010 Personal history of colon polyps; Z95.1 Presence of aortocoronary bypass graft; Z95.5 Presence of coronary angioplasty implant and graft
CPT/HCPCS: 47563; 36415; 82962; 82150; 85027; 80076; 80048; 88304 ×2; 74300; Q9967; J2250; J0690; J3010 ×2; A9270 ×2; J2704; J0131; 790

== ENCOUNTER → 2018-05-30 | Outpatient (CLI) | payer MEDICARE, BC ==
--- NOTE | 2018-05-30 15:01 | RADIOLOGY REPORT (SQ) ---
EXAM DESCRIPTION: KUB/ABDOMEN (SINGLE VIEW) COMPLETED DATE/TIME: 05/30/2018 2:23 pm REASON FOR STUDY: R14.0 ABDOMINAL DISTENSION (GASEOUS) K59.01 SLOW TRANSIT CONSTIPATION R14.0 ABDOM INAL DISTENSION (GASEOUS) K59.01 SLOW TRANSIT CONSTIPATION COMPARISON: Abdominal films 07/31/2017 CT abdomen pelvis 05/17/2014 NUMBER OF VIEWS: One view. TECHNIQUE: Supine radiographic image of the abdomen acquired. LIMITATIONS: None. FINDINGS: BOWEL GAS PATTERN: Large amount of stool throughout the colon. Small bowel and stomach ar e decompressed CALCIFICATIONS: 3 mm radiodensity over the left lower pole kidney likely a small intrarenal nonobstru ctive stones. Faintly radiopaque debris throughout the transverse colon stool SOFT TISSUES: No gross mass or suggestion of organomegaly. HARDWARE: Clips right upper quadrant post cholecystectomy. Old sternotomy for CABG BONES: Facet arthropathy at L5-S1 OTHER: No other significant finding. IMPRESSION: Moderate stool in the transverse colon Left lower pole intrarenal nonobstructive stone Clips right upper quadrant post cholecystectomy TECHNICAL DOCUMENTATION: JOB ID: [id number] [employer]- All Rights Reserved Reading location - IP/workstation name: [email or web address]
[2018-05-30 16:03] LABS: FREE T4 (FREE THYROXINE) 0.81 ng/dL (0.78-2.19)
[2018-05-30 16:15] LABS: THYROID STIMULATING HORMONE 2.02 uIU/mL (0.47-4.68)
== END ==
LOC: RAD 13:51
PROVIDERS: ATTEND Physician Assistant Surgical
DX: R14.0 Abdominal distension (gaseous) (principal); K59.01 Slow transit constipation; R10.84 Generalized abdominal pain
CPT/HCPCS: 36415; 74018; 83520; 84439; 84443; 86677

== ENCOUNTER 2019-07-08 07:31 | Emergency (ER) | payer MEDICARE, BC ==
[2019-07-08 08:12] LABS: ABSOLUTE EOSINOPHILS # (AUTO) 0.2 10^3/uL (0.0-0.6); ABSOLUTE LYMPHOCYTES (AUTO) 0.9 10^3/uL (0.5-4.7); ABSOLUTE MONOCYTES (AUTO) 0.6 10^3/uL (0.1-1.4); ABSOLUTE NEUT (AUTO) 5.3 10^3/uL (1.7-8.2); BASOPHILS % (AUTO) 0.6 % (0-2); EOSINOPHILS % (AUTO) 3.1 % (0-6); HEMATOCRIT 36.5 % (37.9-51.0); HEMOGLOBIN 12.1 g/dL (13.5-17.0); LYMPHOCYTES % (AUTO) 13.4 % (13-45); MEAN CORPUSCULAR HEMOGLOBIN 31.2 pg (27.0-33.4); MEAN CORPUSCULAR HGB CONC 33.1 g/dL (32.0-36.0); MEAN CORPUSCULAR VOLUME 94 fl (80-97); PLATELET COUNT 186 10^3/uL (150-450); RED BLOOD COUNT 3.88 10^6/uL (4.35-5.55); RED CELL DISTRIBUTION WIDTH 12.8 % (11.5-14.0); SEGMENTED NEUTROPHILS % (AUTO) 74.9 % (42-78); TOTAL CELLS COUNTED % (AUTO) 100 %
[2019-07-08 08:18] LABS: APPEARANCE,URINE CLEAR; BILIRUBIN,URINE NEGATIVE (NEGATIVE); COLOR,URINE YELLOW; GLUCOSE, URINE NEGATIVE (NEGATIVE); KETONES,URINE NEGATIVE (NEGATIVE); LEUKOCYTE ESTERASE,URINE SMALL (NEGATIVE); NITRITE,URINE NEGATIVE (NEGATIVE); PROTEIN,URINE 100 mg/dL (NEGATIVE); URINE SPECIFIC GRAVITY 1.021; UROBILINOGEN,URINE NEGATIVE mg/dL (<2.0)
[2019-07-08 08:32] LABS: ALBUMIN 4.2 g/dL (3.5-5.0); ALKALINE PHOSPHATASE 84 U/L (38-126); ANION GAP 13 (5-19); ASPARTATE AMINO TRANSFERASE 31 U/L (17-59); BILIRUBIN,DIRECT 0.2 mg/dL (0.0-0.4); BILIRUBIN,TOTAL 0.3 mg/dL (0.2-1.3); BLOOD UREA NITROGEN 26 mg/dL (7-20); CALCIUM 8.9 mg/dL (8.4-10.2); CARBON DIOXIDE 22 mmol/L (22-30); CHLORIDE 109 mmol/L (98-107); GLUCOSE 183 mg/dL (75-110); POTASSIUM 4.9 mmol/L (3.6-5.0); TOTAL PROTEIN 7.1 g/dL (6.3-8.2)
[2019-07-08 08:37] LABS: ACETAMINOPHEN < 10 ug/mL (10-30); ALCOHOL < 10 mg/dL (NONE DETECTED); SALICYLATE < 1.0 mg/dL (2.0-20.0)
[2019-07-08 08:40] LABS: URINE AMPHETAMINES SCREEN NEGATIVE; URINE BARBITURATES SCREEN NEGATIVE; URINE BENZODIAZEPINES SCREEN NEGATIVE; URINE COCAINE SCREEN NEGATIVE; URINE MARIJUANA (THC) SCREEN NEGATIVE; URINE METHADONE SCREEN NEGATIVE; URINE PHENCYCLIDINE SCREEN NEGATIVE
[2019-07-08] MEDS ORDERED: NORMAL SALINE 1000 ML 1,000 ML IV ONE (10:30)
--- NOTE | 2019-07-08 10:32 | ER Document Report ---
Entered by AUSTYN WYNN SCRIBE 07/08/19 0919 Acting as scribe for:BRONWYN SAEZ MD ED Psych Disorder / Suicide - General Chief Complaint: Psych Problem Stated Complaint: PSYCH/BEHAVIOUR ISSUES Time Seen by Provider: 07/08/19 09:17 Primary Care Provider: NORA WILCOX MD [Primary Care Provider] - Follow up as needed Mode of Arrival: Medic Information source: [facility] Records Notes: This 68 year old male patient brought in by EMS presents to the ED today with complaints of being manic prior to arrival. EMS states that they were called by law enforcement because the patient was found in someone's backyard holding a dog that did not belong to him. EMS reports that the patient was discharged from [facility] "sometime last week" and the the patient was unable to state why he was there. When asked again about [facility], patient states that he is still admitted there. Patient was unable to hold a full conversation without getting confused and he changed the subject frequently. Patient made comments like "it's like a puzzle, some have 14 pieces and others have 2". Patient was started on Namenda for dementia x2 days ago. TRAVEL OUTSIDE OF THE [place] IN LAST 30 DAYS: No - Related Data Allergies/Adverse Reactions: No Known Allergies Allergy (Verified 08/30/17 08:17) Past Medical History - General Information source: [facility] Records - Social History Smoking Status: Unknown if Ever Smoked Cigarette use (# per day): No Chew tobacco use (# tins/day): No Smoking Education Provided: No Family History: CAD, Hypertension, Other - [place] Patient has suicidal ideation: No Patient has homicidal ideation: No - Past Medical History Cardiac Medical History: Reports: Hx Coronary Artery Disease, Hx Heart Attack - x2 (age 41 and 62), Hx Hypercholesterolemia, Hx Hypertension Endocrine Medical History: Reports: Hx Diabetes Mellitus Type 2 Renal/ Medical History: Reports: Hx Kidney Stones Past Surgical History: Reports: Hx Coronary Artery Bypass Graft - triple bypass, Hx Coronary Stent - x1 - Immunizations Hx Diphtheria, Pertussis, Tetanus Vaccination: No Hx Pneumococcal Vaccination: 04/15/14 Review of Systems - Review of Systems Constitutional: No symptoms reported EENT: No symptoms reported Cardiovascular: No symptoms reported Respiratory: No symptoms reported Gastrointestinal: No symptoms reported Genitourinary: No symptoms reported Male Genitourinary: No symptoms reported Musculoskeletal: No symptoms reported Skin: No symptoms reported Hematologic/Lymphatic: No symptoms reported Neurological/Psychological: See HPI, Confusion, Other - Kailyn -: Yes All other systems reviewed and negative Physical Exam - Vital signs Vitals: Temp Pulse Resp BP Pulse Ox 97.4 F 65 20 150/82 H 99 07/08/19 08:06 07/08/19 08:06 07/08/19 08:06 07/08/19 08:06 07/08/19 08:06 - General General appearance: Alert, Other - sleeping, but easily aroused. calm and confused In distress: None - HEENT Head: Normocephalic, Atraumatic Eyes: Normal Pupils: PERRL - Respiratory Respiratory status: No respiratory distress Chest status: Nontender Breath sounds: Normal Chest palpation: Normal - Cardiovascular Rhythm: Regular Heart sounds: Normal auscultation Murmur: No - Abdominal Inspection: Normal Distension: No distension Bowel sounds: Normal Tenderness: Nontender Organomegaly: No organomegaly - Back Back: Normal, Nontender - Extremities General upper extremity: Normal inspection General lower extremity: Normal inspection - Neurological Neuro grossly intact: Yes - Psychological Associated symptoms: Confused, Other - when patient was asked questions, he went off on a tangent - Skin Skin Temperature: Warm Skin Moisture: Dry Skin Color: Normal Course - Re-evaluation Re-evalutation: 07/08/19 16:59 Psychology consultation recommended stopping all psychoactive medications and p lacing the patient on Depakote 250 mg twice daily, and BuSpar 5 mg twice daily. We will continue the patient's Flomax, Lipitor, and metformin. He will be reevaluated tomorrow after there is been more time for the psychoactive medications he is taking to wear off. - Vital Signs Vital signs: Temp Pulse Resp BP Pulse Ox 98.0 F 68 16 183/77 H 98 07/08/19 14:38 07/08/19 14:38 07/08/19 14:38 07/08/19 14:38 07/08/19 14:38 - Laboratory Result Diagrams: 07/08/19 07:50 07/08/19 07:50 Laboratory results interpreted by me: 07/08/19 07/08/19 07/08/19 07:50 07:50 07:50 RBC 3.88 L Hgb 12.1 L Hct 36.5 L Chloride 109 H BUN 26 H Glucose 183 H Hemoglobin A1c % Urine Protein 100 H Ur Leukocyte Esterase SMALL H Salicylates < 1.0 L Acetaminophen < 10 L 07/08/19 07:50 RBC Hgb Hct Chloride BUN Glucose Hemoglobin A1c % 8.0 H Urine Protein Ur Leukocyte Esterase Salicylates Acetaminophen Discharge - Discharge Clinical Impression: Confusion Altered mental status Qualifiers: Altered mental status type: unspecified Qualified Code(s): R41.82 - Altered mental status, unspecified Condition: Stable Disposition: PSYCH HOSP/UNIT Referrals: NORA WILCOX MD [Primary Care Provider] - Follow up as needed Scribe Attestation: 07/08/19 17:02 I personally performed the services described in the documentation, reviewed and edited the documentation which was dictated to the scribe in my presence, and it accurately records my words and actions. I personally performed the services described in the documentation, reviewed and edited the documentation which was dictated to the scribe in my presence, and it accurately records my words and actions.
--- NOTE | 2019-07-08 13:13 | PSYCHOLOGICAL NOTE ---
Psych Note - Psych Note Date seen by psych provider: 07/08/19 Time seen by psych provider: 08:20 Psych Note: Reason For Consult:Psychosis Consent Permissions:unable to provided patient has an open case with APS; worker is Aleshia Watson Patient is able to disclose that he lives at [address]. however is unable to identify where he currently is. Patient currently believes he is in [facility]. Patient reports that he used to live with his parents until they stating that that was "many years ago." Patient reports that he lives alone. He is unable to provide diagnosis or medications however reports that "it has been going on for years, you cannot change the direction of the river." Patient reports that he was in [facility] for a week and 1/2 to 2 weeks however is unable to provide any further information. He confirms he picked up his medication stating "I put it on my visa but it is going to be maxed out soon and I have not received my check." Clinician spoke with [facility] who reports that the patient was admitted 06/26/2019 from [facility] and was discharged on 07/05/2019. Patient was discharged after increasing risperidone to 1 mg nightly, discontinuing Effexor, and starting Celexa 10 mg daily. Clinician notes patient was also started on namenda. Upon admission to [facility] records indicate the patient was fully orientated to person, place, time and circumstance. While he was guarded he had normal motor activity levels. The patient's conversational speech was noted to be within normal rate, tone and prosody. However his mood was dysphoric with flat affect. Clinician spoke with Olinda from [facility]. She reports the patient receives services from their company for halfway. She notes concern that they just were notified that the patient is not homebound which is needed criteria for services; however, they have not discharged him from their services as of today. She disclosed that the patient's medical provider is Dr. Александр Robledo of internal medicine. She notes the patient is extremely noncompliant and has behavioral problems. They were just notified that he was in [facility]. Patient was seen 06/06/[address] Venkat TRINIDAD. Records indicate that the patient followed up with an evaluation for neurology and was noted to have a many mental status exam within normal range. It was noted that the patient had not taken his medications the morning he saw his neurologist so the neurologist advised to decrease his medications. He disclosed that he followed up with psychiatry who was going to work on tapering and discontinuing his Risperdal and decrease his Effexor to 75 mg. During that visit it was noted the patient had impaired insight but intact judgment. Conversational speech was within normal rate, tone and prosody. It was also noted that thought processes had impaired abstract reasoning and thought preservation. He had circumferentiality with abnormal thoughts and obsessions however exhibited no delusions. During that visit the patient's mood was anxious, restricted and dysphoric. Patient is alert and orientated to person. Mood is elevated with congruent affect as evidenced by smiling, laughing and engaging with clinician. Psychomotor agitation is noted with constant movement of body ie pacing, touching objects in room etc. Patient denies suicidal and homicidal ideation. Delusions are absent. Patient is presenting with hallucinations; reporting seeing other people in his room. Eye contact is fair. Flight of thought is noted and is tangential when asked questions. His conversational speech is disorganized and illogical. Intellectual abilities appear to be within the average range. Attention and concentration are poor. Insight, judgment, impulse control are poor. Diagnosis: Neurocognitive disorder per history provided by [facility] documented by Dr. Александр Robledo Bipolar per history provided by [facility] documented by Dr. Александр Robledo Anxiety per history provided by [facility] documented by Dr. Александр Robledo Medication recommendations per [facility]'s contracted psychiatrist Dr. Pebbles TRINIDAD are as follows: discontinue home medications of celexa, risperdone, lorazepam,namenda Please start Depakote 250mg twice daily Please start Buspar 5mg twice daily Attending physicians are asked to consider to avoid prescribing benzodiazepines (e.g. Ativan, Xanax, Valium, Klonopin), antipsychotics (e.g. Haldol, Geodon, Zyprexa, Seroquel). Some sleep aids (e.g. Ambien, Lunesta, Sonata), narcotic pain medications and high-dose of steroids (prednisone) as they have been known to cause and/or increased symptoms of aggression, psychosis and/or paranoia in patients with neurodegenerative processes such as dementia, Alzheimer's disease, traumatic brain injury, etc. Impression\\plan: Patient is recommended for IVC petition for overnight mental health observation and stabilization. Patient is currently a danger to himself as he was found in someone's backyard holding their pet dog. Patient is not fully orientated, appears to be responding to internal stimuli, flight of thought, and presents with disorganized and illogical conversational speech. He lives alone and there is no known fiull time caregivers for the patient. Patient was just discharged from inpatient psychiatric treatment from [facility] where he received medication adjustments. It appears the patient has an existing diagnosis of dementia and his PCM was working this the patient's neurologist to decrease medications (specifically Risperdal); unfortunately, the patient Risperdal was increased during this stay at [facility]. This could be contributing to the patient current presentation. Patient will be reevaluated. Dr. Balderas was consulted to care management of this patient; attending physicians in agreement with recommendations and disposition.
[2019-07-08] MEDS: TAMSULOSIN HCL 0.4 MG CAP.SR.24H PO SCH (17:41)
[2019-07-08] MEDS: METFORMIN HCL 500 MG TABLET PO SCH (17:41)
[2019-07-08] MEDS: ATORVASTATIN CALCIUM 80 MG TABLET PO SCH (17:41)
[2019-07-08] MEDS: DIVALPROEX SODIUM 250 MG TABLET.DR PO SCH ×2 (17:41→18:03)
[2019-07-08] MEDS: BUSPIRONE HCL 10 MG TABLET PO SCH ×2 (17:42→18:02)
--- NOTE | 2019-07-08 20:16 | EKG REPORT ---
SEVERITY:- OTHERWISE NORMAL ECG - SINUS RHYTHM LEFT AXIS DEVIATION : Confirmed by: Janet Rios MD 08-Jul-2019 20:15:58
[2019-07-09] MEDS: METFORMIN HCL 500 MG TABLET PO SCH ×2 (10:38→18:40)
[2019-07-09] MEDS: ATORVASTATIN CALCIUM 80 MG TABLET PO SCH (10:38)
[2019-07-09] MEDS: BUSPIRONE HCL 10 MG TABLET PO SCH ×2 (10:38→18:41)
[2019-07-09] MEDS: DIVALPROEX SODIUM 250 MG TABLET.DR PO SCH ×2 (10:38→18:40)
[2019-07-09] MEDS: TAMSULOSIN HCL 0.4 MG CAP.SR.24H PO SCH (10:39)
--- NOTE | 2019-07-09 19:39 | ER Document Report ---
Doctor's Note Notes: 07/09/19 19:25 PHYSICAL EXAMINATION: GENERAL: Well-appearing and in no acute distress. HEAD: Atraumatic, normocephalic. EYES: sclera anicteric, conjunctiva are normal. ENT: nares patent. Moist mucous membranes. NECK: Normal range of motion, supple without lymphadenopathy LUNGS: CTAB and equal. No wheezes rales or rhonchi. HEART: Regular rate and rhythm without murmurs ABDOMEN: Soft, nontender, normal bowel sounds, no guarding. EXTREMITIES: Normal range of motion, no pitting edema. No cyanosis. Right knee joint tenderness with overlying abrasion. No laxity with varus or valgus maneuvers BACK: No midline tenderness. No CVA tenderness NEUROLOGICAL: Cranial nerves grossly intact. Normal speech. Normal gait. PSYCH: Normal mood, normal affect. SKIN: Warm, Dry, normal turgor Reviewed patient's nurse note, diagnostic tests as well as vital signs. Patient complains of right knee pain. Patient does have overlying abrasion. Patient is worried that he may have something wrong with the knee and is requesting imaging at this time. Mental health team states that they will reevaluate in the morning with plan discharge tomorrow.
--- NOTE | 2019-07-09 21:18 | RADIOLOGY REPORT (SQ) ---
EXAM DESCRIPTION: XR KNEE 4 OR MORE VIEWS COMPLETED DATE/TME: 07/09/2019 19:32 CLINICAL HISTORY: 68 years Male r knee pain COMPARISON: None. TECHNIQUE: Right knee, four views FINDINGS: No acute fractures or dislocations are identified. No osseous destructive lesions. No joint effusion is noted. IMPRESSION: Vascular consultation. No acute fracture is identified.
[2019-07-10] MEDS: DIVALPROEX SODIUM 250 MG TABLET.DR PO SCH ×2 (09:28→18:56)
[2019-07-10] MEDS: METFORMIN HCL 500 MG TABLET PO SCH ×2 (09:28→18:56)
[2019-07-10] MEDS: TAMSULOSIN HCL 0.4 MG CAP.SR.24H PO SCH (09:28)
[2019-07-10] MEDS: BUSPIRONE HCL 10 MG TABLET PO SCH ×2 (09:30→18:56)
[2019-07-10] MEDS: ATORVASTATIN CALCIUM 80 MG TABLET PO SCH (09:33)
--- NOTE | 2019-07-10 11:51 | PSYCHOLOGICAL NOTE ---
Psych Note - Psych Note Date seen by psych provider: 07/10/19 Time seen by psych provider: 07:15 Psych Note: Clinician entered room and provided introduction. Patient replied with concerns regarding his wallet. Clinician acknowledged concern. Patient stated he is experiencing stomach cramps. Clinician informed patient of possible discharge today. Patient states "I'm still confused." Clinician prompted patient to elaborate regarding his confusion, patient replied by expressing concern regarding his wallet. Spoke with patient who stated he did not remember speaking with clinician this morning and speaking regarding discharge. Patient seemed somewhat anxious regar ding discharge. Patient requested to speak with POA. Case is being staffed with [employer] project planner. Per [employer], [facility] referral has been placed. Spoke with patient's POA who states patient had taken his old medication and the new medication prescribed by Chastity Morales. POA states there were no instructions in the discharge packet provided by Chastity Morales that provided discontinuation of medication instructions. POA states that testing conducted by [facility] suggests patient has a less that one percent ability to comprehend verbal instructions. POA states she cannot return to hospital. POA reached out to [facility] for transportation. Diagnosis: Neurocognitive disorder per history provided by [facility] documented by Dr. Александр Robledo Bipolar per history provided by [facility] documented by Dr. Александр Robledo Anxiety per history provided by [facility] documented by Dr. Александр Robledo Medication recommendations per [facility]'s contracted psychiatrist Dr. Pebbles TRINIDAD are as follows: Depakote 250mg twice daily Buspar 5mg twice daily Attending physicians are asked to consider to avoid prescribing benzodiazepines (e.g. Ativan, Xanax, Valium, Klonopin), antipsychotics (e.g. Haldol, Geodon, Zyprexa, Seroquel). Some sleep aids (e.g. Ambien, Lunesta, Sonata), narcotic pain medications and high-dose of steroids (prednisone) as they have been known to cause and/or increased symptoms of aggression, psychosis and/or paranoia in patients with neurodegenerative processes such as dementia, Alzheimer's disease, traumatic brain injury, etc. Impression\\plan: Patient is cleared from acute psychiatric services. Patient does not meet IVC criteria per [place] GS 122C. It is recommended that IVC be rescinded. It is believd that patient's current presentation was the result of accidental overmedication of prescription medication. Patient was confused regarding medication management and administration, and took his old medication and new medication that was prescribed by Chastity Morales. Patient's POA made [facility]astity Morales staff aware of situation. Patient's POA is a collaborator in his plan of care. POA has agreed to remove all old medication from the home. POA has agreed to be responsible for medication management and administration. Patient is link ed with a neurologist. Plan is for patient to follow up with his neurologist. Discharge instructions contained detailed information on medication administration. Dr. Balderas was consulted to care management of this patient; attending physicians in agreement with recommendations and disposition.
[2019-07-10 18:20] VITALS: BP 132/65
[2019-07-10] MEDS ORDERED: IBUPROFEN 600 MG TABLET PO ONE (18:27)
== END 2019-07-10 19:25 | disposition home or self-care (01) ==
LOC: ER 07:31
DX: M25.561 Pain in right knee (principal); R41.0 Disorientation, unspecified; I25.10 Atherosclerotic heart disease of native coronary artery without angina pectoris; E78.00 Pure hypercholesterolemia, unspecified; I10 Essential (primary) hypertension; E11.9 Type 2 diabetes mellitus without complications; Z87.442 Personal history of urinary calculi; Z95.1 Presence of aortocoronary bypass graft; I25.2 Old myocardial infarction
CPT/HCPCS: 93005; 99285; 96360; 36415; 87086; 80307 ×4; 84443; 85025; 80053; 81001; 83036; 93010; A9270 ×11; J7030